=== PATIENT | female | born 1975 | race Caucasian/White ===

== ENCOUNTER 2018-07-15 19:31 | Inpatient (IN) | payer OTHER ==
[~2018-07-15] VITALS: Ht 160 cm; Wt 90.7 kg
[~2018-07-15 19:31] MED LIST: ACID REDUCER 1150 MG PO; AMPDEX10 PO; ARIP10 PO; Augmentin 875-1 EACH PO; CEPH500 PO; Flagyl500 MG PO; LEVFLO500 PO; Norvasc5 MG PO; ONDA4 PO; OXYACE5T PO; Percocet 5-3251 EACH PO; SULTRIDS PO
[2018-07-15 21:20] LABS: BASOPHILS ABSOLUTE AUTO 0.03 K/mm3 (0.00-0.23); BASOPHILS PERCENT AUTO 0 % (0-2); EOSINOPHILS ABSOLUTE AUTO 0.02 K/mm3 (0.00-0.68); EOSINOPHILS PERCENT AUTO 0 % (0-6); Hematocrit 41.8 % (33.0-51.0); Hemoglobin 13.6 g/dL (11.5-16.0); IMMATURE GRAN PERCENT AUTO 1 % (0-1); LYMPHOCYTES ABSOLUTE AUTO 1.23 K/mm3 (0.84-5.20); LYMPHOCYTES PERCENT AUTO 7 % (21-46); MONOCYTES ABSOLUTE AUTO 0.94 K/mm3 (0.16-1.47); MONOCYTES PERCENT AUTO 5 % (4-13); Mean Corpuscular HGB 30.4 pg (26.0-34.0); Mean Corpuscular HGB Conc 32.5 g/dL (31.5-36.5); Mean Corpuscular Volume 94 fL (80-100); Mean Platelet Volume 9.6 fL (9.1-12.4); NEUTROPHILS ABSOLUTE AUTO 15.47 K/mm3 (1.96-9.15); NEUTROPHILS PERCENT AUTO 87 % (41-73); Platelet Count 446 K/mm3 (150-400); RDW Standard Deviation 44.6 fL (35.1-46.3); Red Blood Cell Count 4.47 M/mm3 (3.80-5.20); White Blood Cell Count 17.79 K/mm3 (4.00-11.30)
[2018-07-15 21:33] LABS: Alanine Aminotransfer (ALT/SGP 39 U/L (12-78); Albumin, Blood 3.5 g/dL (3.4-5.0); Albumin/Globulin Ratio 0.7 (0.8-1.8); Alk Phos 126 U/L (50-136); Anion Gap 11 mmol/L (6-16); Aspartate Aminotrans (AST/SGOT 24 U/L (12-37); Bilirubin, Total 0.6 mg/dL (0.1-1.0); Blood Urea Nitrogen 14 mg/dL (8-24); Bun/Creatinine Ratio 21.8 (12.0-20.0); CO2, Blood 22 mmol/L (21-32); Calcium, Blood 9.4 mg/dL (8.5-10.1); Chloride, Blood 100 mmol/L (98-108); Creatinine, Blood 0.64 mg/dL (0.40-1.00); Globulin, Blood 5.3 g/dL (2.2-4.0); Glomerular Filtration Rate >60 (60-); Glucose, Blood 95 mg/dL (70-99); Potassium, Blood 4.4 mmol/L (3.5-5.5); Sodium, Blood 133 mmol/L (136-145); Total Protein, Blood 8.8 g/dL (6.4-8.2)
[2018-07-16] MEDS ORDERED: AMPDEX10CR PO (01:13)
[2018-07-16] MEDS ORDERED: ALPR.5 PO (01:13)
--- NOTE | 2018-07-16 07:33 | NUR ---
SHIFT SUMMARY PT NEW ADMIT THIS AM. AAOX4. DISCOMFORT CONTROLLED WITH 1MG IV DILAUDID Q2-3P. DRAIN TO RLQ ABD WITH SMALL AMOUNT SEROUS DRAINAGE. PT SBA TO AMBULATE IN ROOM. NPO. PT ORIENTED TO ROOM + CALL LIGHT USE.
--- NOTE | 2018-07-16 18:04 | NUR ---
PT C/O CONSTANT PAIN MEDICATE DPER EMAR. KPAD IN PLACE TO EASE PAIN. ABCESS DRAIN IRRIGATED BY DR MAE. DRAIN EMPTIED @125ML OF SEROUS AND THICK YELLOW MUCOUS TYPE FLUID WITH FOUL SMELL. SCD'S ON. PT ENCOURAGED TO AMBULATE MORE OFTEN TO HELP WITH PAIN WELL...NEEDS MORE ENCOURAGEMENT DUE TO PAIN.
--- NOTE | 2018-07-16 19:01 | NUR ---
DRESSING CHANGED DUE TO LEAKING AROUND INSERTION SITE
--- NOTE | 2018-07-17 04:30 | NUR ---
SHIFT SUMMARY PT RESTED WELL T/O NIGHT. AAOX4. DISCOMFORT CONTROLLED WITH 2 NORCO Q4H, NAUSEA CONTROLLED WITH ZOFRAN. NO NAUSEA. DRAIN FLUSHED PER ORDERS + BAG CHANGED. PT UP AMBULATING IN HALLS T/O SHIFT. IVF + ABX PER ORDERS. PT RESTING WELL THIS AM. CALL LIGHT IN REACH + PT USES FOR ASSISTANCE.
--- NOTE | 2018-07-17 15:45 | NUR ---
SHIFT SUMMARY PT A&OX4, VSS, S/P PELVIC ABSCESS W/ T TUBE, SURGEON IRRIGATED W/0 DRAINAGE RESULT; EMPTIED 60 MLS. ABD SOFT, NONDISTENDED, SL TENDER. AMBULATED IN ROOM, TO BRP, IN HALLWAYS, SAT IN CHAIR T/O SHIFT. 18G RAC. PAIN MANAGED WITH 1-2 NORCO, TORADOL PRN. ZOFRAN GIVEN FOR NAUSEA. ANGEL CL DIET. WCTM & TX PER EMAR UNTIL REPORT GIVEN TO ONCOMING DAVIAN RN.
--- NOTE | 2018-07-18 07:21 | NUR ---
SHIFT SUMMARY PT A&O X4 T/O SHIFT. DRAIN IN LLQ DRAINING BLOOD TINGED, GUZMAN DRAINAGE; FLUSHED PER ORDERS. TOTAL OUT MINUS FLUSH 5ML; PATENT. PAIN AND NAUSEA MANAGED PER EMAR. ABD SOFT, TENDER. EDUCATION ON DVT PREVETNION, PT REQUESTED SCD'S REMOVED FOR SECOND HALF OF SHIFT. INDEPENDENT IN ROOM AND PERSONAL CARE. TOLERATING DIET WELL. CT THIS AM. CALL LIGHT IN REACH; PT DEMONSTRATES USE. REPORT GIVEN TO DAY SHIFT RN.
--- NOTE | 2018-07-18 14:49 | NUR ---
DISCHARGED REVIEWED DC PAPERWORK W/PT. VERBALIZED UNDERSTANDING. DC'D IV, CATHETER INTACT. PRESCRIPTIONS FAXED TO [facility] PER PT REQUEST. PT LEFT UNIT BY AMBULATION W/POSSESSIONS IN HAND, ACCOMPANIED BY FAMILY.
== END 2018-07-18 14:40 | disposition home or self-care (01) | DRG 392 ==
LOC: ER 19:31 → SURS 23:37
PROVIDERS: Physician Assistant; ADMIT Surgery
DX: K57.20 Diverticulitis of large intestine with perforation and abscess without bleeding (principal); F17.290 Nicotine dependence, other tobacco product, uncomplicated
CPT/HCPCS: 36415; 74177; 80053; 83605; 85025; 87040; 94762; 96365-59; 96375; 99285-25; A9270-GY; J1170; J1885; J2405; J2543; J3010; J7030; J7120; Q9967

== ENCOUNTER 2018-07-22 13:17 | Inpatient (IN) | payer OTHER ==
[~2018-07-22] VITALS: Ht 160 cm; Wt 96.1 kg
[~2018-07-22 13:17] MED LIST changes: +ALPR.5 PO; +AMPDEX10CR PO
[2018-07-22 13:49] LABS: BASOPHILS ABSOLUTE AUTO 0.05 K/mm3 (0.00-0.23); BASOPHILS PERCENT AUTO 1 % (0-2); EOSINOPHILS ABSOLUTE AUTO 0.12 K/mm3 (0.00-0.68); EOSINOPHILS PERCENT AUTO 1 % (0-6); Hematocrit 35.8 % (33.0-51.0); Hemoglobin 11.4 g/dL (11.5-16.0); IMMATURE GRAN ABSOLUTE AUTO 0.07 K/mm3 (0.00-0.10); IMMATURE GRAN PERCENT AUTO 1 % (0-1); LYMPHOCYTES PERCENT AUTO 10 % (21-46); MONOCYTES ABSOLUTE AUTO 1.03 K/mm3 (0.16-1.47); MONOCYTES PERCENT AUTO 10 % (4-13); Mean Corpuscular HGB 30.4 pg (26.0-34.0); Mean Corpuscular HGB Conc 31.8 g/dL (31.5-36.5); Mean Corpuscular Volume 96 fL (80-100); Mean Platelet Volume 9.4 fL (9.1-12.4); NEUTROPHILS ABSOLUTE AUTO 8.47 K/mm3 (1.96-9.15); NEUTROPHILS PERCENT AUTO 78 % (41-73); Platelet Count 426 K/mm3 (150-400); RDW Coefficient Variation 12.7 % (11.7-14.2); RDW Standard Deviation 44.1 fL (35.1-46.3); Red Blood Cell Count 3.75 M/mm3 (3.80-5.20); White Blood Cell Count 10.84 K/mm3 (4.00-11.30)
[2018-07-22 14:29] LABS: Alanine Aminotransfer (ALT/SGP 42 U/L (12-78); Albumin/Globulin Ratio 0.5 (0.8-1.8); Alk Phos 113 U/L (50-136); Anion Gap 7 mmol/L (6-16); Aspartate Aminotrans (AST/SGOT 25 U/L (12-37); Bilirubin, Total 0.2 mg/dL (0.1-1.0); Blood Urea Nitrogen 12 mg/dL (8-24); Bun/Creatinine Ratio 17.9 (12.0-20.0); CO2, Blood 28 mmol/L (21-32); Calcium, Blood 9.5 mg/dL (8.5-10.1); Chloride, Blood 101 mmol/L (98-108); Creatinine, Blood 0.67 mg/dL (0.40-1.00); Globulin, Blood 5.6 g/dL (2.2-4.0); Glomerular Filtration Rate >60 (60-); Glucose, Blood 107 mg/dL (70-99); Potassium, Blood 3.8 mmol/L (3.5-5.5); Sodium, Blood 136 mmol/L (136-145); Total Protein, Blood 8.6 g/dL (6.4-8.2)
[2018-07-22] MEDS ORDERED: AMPDEX10 PO (18:01)
[2018-07-22] MEDS ORDERED: ALPR1 PO (18:01)
[2018-07-22] MEDS ORDERED: AMPDEX10 (18:01)
[2018-07-23 05:07] LABS: BASOPHILS ABSOLUTE AUTO 0.04 K/mm3 (0.00-0.23); BASOPHILS PERCENT AUTO 0 % (0-2); EOSINOPHILS ABSOLUTE AUTO 0.06 K/mm3 (0.00-0.68); EOSINOPHILS PERCENT AUTO 1 % (0-6); Hematocrit 33.6 % (33.0-51.0); Hemoglobin 10.8 g/dL (11.5-16.0); IMMATURE GRAN ABSOLUTE AUTO 0.08 K/mm3 (0.00-0.10); IMMATURE GRAN PERCENT AUTO 1 % (0-1); LYMPHOCYTES ABSOLUTE AUTO 0.88 K/mm3 (0.84-5.20); LYMPHOCYTES PERCENT AUTO 8 % (21-46); MONOCYTES PERCENT AUTO 8 % (4-13); Mean Corpuscular HGB Conc 32.1 g/dL (31.5-36.5); Mean Corpuscular Volume 93 fL (80-100); Mean Platelet Volume 9.2 fL (9.1-12.4); NEUTROPHILS ABSOLUTE AUTO 9.58 K/mm3 (1.96-9.15); NEUTROPHILS PERCENT AUTO 83 % (41-73); Platelet Count 432 K/mm3 (150-400); RDW Coefficient Variation 12.5 % (11.7-14.2); RDW Standard Deviation 43.3 fL (35.1-46.3); White Blood Cell Count 11.54 K/mm3 (4.00-11.30)
[2018-07-23 05:22] LABS: International Normalized Ratio 1.04
[2018-07-24 04:52] LABS: BASOPHILS ABSOLUTE AUTO 0.02 K/mm3 (0.00-0.23); BASOPHILS PERCENT AUTO 0 % (0-2); EOSINOPHILS ABSOLUTE AUTO 0.13 K/mm3 (0.00-0.68); EOSINOPHILS PERCENT AUTO 2 % (0-6); Hematocrit 30.7 % (33.0-51.0); Hemoglobin 9.6 g/dL (11.5-16.0); IMMATURE GRAN ABSOLUTE AUTO 0.07 K/mm3 (0.00-0.10); IMMATURE GRAN PERCENT AUTO 1 % (0-1); LYMPHOCYTES ABSOLUTE AUTO 1.35 K/mm3 (0.84-5.20); LYMPHOCYTES PERCENT AUTO 17 % (21-46); MONOCYTES ABSOLUTE AUTO 0.81 K/mm3 (0.16-1.47); MONOCYTES PERCENT AUTO 10 % (4-13); Mean Corpuscular HGB 29.3 pg (26.0-34.0); Mean Corpuscular HGB Conc 31.3 g/dL (31.5-36.5); Mean Corpuscular Volume 94 fL (80-100); Mean Platelet Volume 9.3 fL (9.1-12.4); NEUTROPHILS ABSOLUTE AUTO 5.38 K/mm3 (1.96-9.15); NEUTROPHILS PERCENT AUTO 69 % (41-73); Platelet Count 399 K/mm3 (150-400); RDW Coefficient Variation 12.7 % (11.7-14.2); Red Blood Cell Count 3.28 M/mm3 (3.80-5.20); White Blood Cell Count 7.76 K/mm3 (4.00-11.30)
[2018-07-25 04:26] LABS: BASOPHILS ABSOLUTE AUTO 0.02 K/mm3 (0.00-0.23); BASOPHILS PERCENT AUTO 0 % (0-2); EOSINOPHILS ABSOLUTE AUTO 0.25 K/mm3 (0.00-0.68); EOSINOPHILS PERCENT AUTO 3 % (0-6); Hematocrit 30.7 % (33.0-51.0); Hemoglobin 9.7 g/dL (11.5-16.0); IMMATURE GRAN ABSOLUTE AUTO 0.09 K/mm3 (0.00-0.10); IMMATURE GRAN PERCENT AUTO 1 % (0-1); LYMPHOCYTES ABSOLUTE AUTO 1.46 K/mm3 (0.84-5.20); LYMPHOCYTES PERCENT AUTO 19 % (21-46); MONOCYTES ABSOLUTE AUTO 0.63 K/mm3 (0.16-1.47); MONOCYTES PERCENT AUTO 8 % (4-13); Mean Corpuscular HGB 29.5 pg (26.0-34.0); Mean Corpuscular HGB Conc 31.6 g/dL (31.5-36.5); Mean Corpuscular Volume 93 fL (80-100); Mean Platelet Volume 8.9 fL (9.1-12.4); NEUTROPHILS PERCENT AUTO 68 % (41-73); Platelet Count 378 K/mm3 (150-400); RDW Coefficient Variation 12.7 % (11.7-14.2); RDW Standard Deviation 43.7 fL (35.1-46.3); Red Blood Cell Count 3.29 M/mm3 (3.80-5.20); White Blood Cell Count 7.55 K/mm3 (4.00-11.30)
[2018-07-27 04:39] LABS: BASOPHILS ABSOLUTE AUTO 0.04 K/mm3 (0.00-0.23); BASOPHILS PERCENT AUTO 1 % (0-2); EOSINOPHILS ABSOLUTE AUTO 0.32 K/mm3 (0.00-0.68); EOSINOPHILS PERCENT AUTO 4 % (0-6); Hemoglobin 10.7 g/dL (11.5-16.0); IMMATURE GRAN ABSOLUTE AUTO 0.15 K/mm3 (0.00-0.10); IMMATURE GRAN PERCENT AUTO 2 % (0-1); LYMPHOCYTES ABSOLUTE AUTO 1.34 K/mm3 (0.84-5.20); LYMPHOCYTES PERCENT AUTO 16 % (21-46); MONOCYTES ABSOLUTE AUTO 0.61 K/mm3 (0.16-1.47); MONOCYTES PERCENT AUTO 7 % (4-13); Mean Corpuscular HGB 29.3 pg (26.0-34.0); Mean Corpuscular HGB Conc 31.5 g/dL (31.5-36.5); Mean Corpuscular Volume 93 fL (80-100); Mean Platelet Volume 8.9 fL (9.1-12.4); NEUTROPHILS ABSOLUTE AUTO 5.79 K/mm3 (1.96-9.15); NEUTROPHILS PERCENT AUTO 70 % (41-73); Platelet Count 381 K/mm3 (150-400); RDW Coefficient Variation 12.8 % (11.7-14.2); RDW Standard Deviation 43.8 fL (35.1-46.3); Red Blood Cell Count 3.65 M/mm3 (3.80-5.20); White Blood Cell Count 8.25 K/mm3 (4.00-11.30)
[2018-07-27] MEDS ORDERED: Augmentin 875-1 EACH PO (10:47)
[2018-07-27] MEDS ORDERED: TYLENOL325 MG PO (10:47)
[2018-07-27] MEDS ORDERED: Percocet 5-3251 EACH PO (10:48)
[2018-07-27] MEDS ORDERED: GAVILAX17 GM PO (10:48)
== END 2018-07-27 11:35 | disposition home or self-care (01) | DRG 392 ==
LOC: ER 13:17 → SURS 13:18
PROVIDERS: Physician Assistant; ADMIT Surgery
PROC: 0D9W30Z Drainage of Peritoneum with Drainage Device, Percutaneous Approach (ICD-10-PCS; principal; 2018-07-23)
DX: K57.20 Diverticulitis of large intestine with perforation and abscess without bleeding (principal); N28.89 Other specified disorders of kidney and ureter; I10 Essential (primary) hypertension; F17.290 Nicotine dependence, other tobacco product, uncomplicated
CPT/HCPCS: 36415; 49405; 74177; 76705; 80053; 85025; 85610; 85730; 87070; 87075; 87077; 87186; 87205; 96361-59; 96365-59; 96375-59; 96376-59; 99285-25; J0295; J1170; J1650; J1885; J2270; J2405; J2543; J7120; Q9967

== ENCOUNTER 2018-08-06 12:26 | Inpatient (IN) | payer OTHER ==
[~2018-08-06] VITALS: Wt 94.5 kg
[~2018-08-06 12:26] MED LIST changes: +ALPR1 PO; +AMPDEX10; +GAVILAX17 GM PO; +TYLENOL325 MG PO
--- NOTE | 2018-08-06 15:51 | NUR ---
pt arrived to room 226 direct admit from home for surg planned in am for coloctomy with colostomy dr jansen ans service notified of pt arrival
--- NOTE | 2018-08-06 16:57 | NUR ---
DR MAE BY TO SEE PT IV STARTED OK TO EAT REG DIET NPO AFTER MN SURG SCHED FOR 0900 PT GIVEN BOOK FOR COLOSTOMY TALKED WITH PT ABOUT PREOP AND SURG PAIN MEDS GIVEN
--- NOTE | 2018-08-06 18:54 | NUR ---
pt wanting to go outside with her family sl iv
--- NOTE | 2018-08-06 19:26 | NUR ---
PT REP HAVING DIARRHEA OVER LAST SEVERAL DAYS. PT W/RECENT ADMITS W/IN PT AND OUT PT ABX. CONCERN R/T POSS C-DIFF DISCUSSED W/DR MAE. NO ORDER FOR STOOL SAMPLE RECIEVED AT THIS TIME.
--- NOTE | 2018-08-06 19:28 | NUR ---
pt back to room po pain meds given
[2018-08-07 04:28] LABS: BASOPHILS ABSOLUTE AUTO 0.03 K/mm3 (0.00-0.23); BASOPHILS PERCENT AUTO 0 % (0-2); EOSINOPHILS ABSOLUTE AUTO 0.14 K/mm3 (0.00-0.68); EOSINOPHILS PERCENT AUTO 1 % (0-6); Hematocrit 28.6 % (33.0-51.0); IMMATURE GRAN PERCENT AUTO 1 % (0-1); LYMPHOCYTES ABSOLUTE AUTO 1.47 K/mm3 (0.84-5.20); LYMPHOCYTES PERCENT AUTO 14 % (21-46); MONOCYTES ABSOLUTE AUTO 1.07 K/mm3 (0.16-1.47); MONOCYTES PERCENT AUTO 10 % (4-13); Mean Corpuscular HGB 29.2 pg (26.0-34.0); Mean Corpuscular HGB Conc 31.5 g/dL (31.5-36.5); Mean Corpuscular Volume 93 fL (80-100); Mean Platelet Volume 9.3 fL (9.1-12.4); NEUTROPHILS ABSOLUTE AUTO 7.64 K/mm3 (1.96-9.15); NEUTROPHILS PERCENT AUTO 73 % (41-73); Platelet Count 378 K/mm3 (150-400); RDW Coefficient Variation 13.7 % (11.7-14.2); RDW Standard Deviation 46.5 fL (35.1-46.3); Red Blood Cell Count 3.08 M/mm3 (3.80-5.20); White Blood Cell Count 10.45 K/mm3 (4.00-11.30)
[2018-08-07 04:43] LABS: Anion Gap 8 mmol/L (6-16); Blood Urea Nitrogen 13 mg/dL (8-24); CO2, Blood 26 mmol/L (21-32); Calcium, Blood 8.9 mg/dL (8.5-10.1); Chloride, Blood 107 mmol/L (98-108); Creatinine, Blood 0.82 mg/dL (0.40-1.00); Glomerular Filtration Rate >60 (60-); Glucose, Blood 88 mg/dL (70-99); Potassium, Blood 3.7 mmol/L (3.5-5.5); Sodium, Blood 141 mmol/L (136-145)
--- NOTE | 2018-08-07 06:38 | NUR ---
PT VSS T/O NIGHT. PT REMAINS PAINFUL, REP NAUSEA THIS AM, NO EMESIS OR DIARRHEA THIS SHIFT. PT NPO PER ORDERS. PLAN FOR SURGERY THIS AM. WILL CONT TO MONITOR UNTIL REP GIVEN TO ONCOMING RN.
--- NOTE | 2018-08-07 10:47 | NUR ---
08/07/18 1047 Mustapha Grimm PATIENT ON SCHEDULED ANTIBIOTICS
--- NOTE | 2018-08-07 18:50 | NUR ---
SHIFT SUMMARY PT A&OX4, VSS, 2L NC, S/P COLECTOMY W/PREVENA, COLOSTOMY. EPIDURAL @ 11 MLS/HR, PT REP PAIN NOT MANAGED WELL, SENSATION T11 - L1, REPOSITIONING; CALLED AND LEFT MESSAGE FOR DAYSURG/PACU TO ALERT ANESTHESIOLOGIST TO COME AND CHECK EPIDURAL ON PT. LOBO PATENT & DRAINING YELLOW URINE. PT REP NAUSEA, ZOFRAN GIVEN X1. WCTM & TX PER EMAR UNTIL REPORT GIVEN TO ONCOMING NOC RN.
--- NOTE | 2018-08-07 19:42 | NUR ---
PT WRITHING, CRYING OUT IN PAIN, UNABLE TO RATE PAIN. EPIDURAL SITE WNL, PT REP PAIN W/LIGHT TOUCH TO AREA AROUND EPIDRUAL, MORE SO RIGHT OF SITE. PT REP PAIN FEELS CONSTANT, THROBBING, RADIATING, REP "IT FEELS LIKE NERVE PAIN" PT REP PAIN IN ABD 9/10, ATTEMPTED TO REPOSITION PT, ABD MORE PAINFUL WHEN OFF OF BACK, BACK MORE PAINFUL WHEN LYING ON BACK. EPIDURAL TITRATED UP TO 12ML/HR BY DAY RN. DAY RN PLACED TO ANESTHESIA FOR UPDATE ON PT, AWAITING CALL BACK.
--- NOTE | 2018-08-07 19:50 | NUR ---
SPOKE W/DR JEFFERY R/T PT PAIN CONTROL. PLAN FOR TO COME SEE PT AFTER CURRENT CASE.
--- NOTE | 2018-08-07 20:32 | NUR ---
DR JEFFERY IN TO SEE PT. EPIDURAL REMOVED APPX 1999. BACK VERY RED BENEATH DRESSING AND TAPE. PT MEDICATED W/100MCG FENTANYL IV PUSH PER ORDERS. PT MUCH MORE CALM APPX 10 MIN AFTER EPIDURAL D/C. REDNESS RESOLVED WELL. PT CONT REP ABD PAIN 10/10, REP WAS PREV 100/10. ORAL SWABS GIVEN. AWAITING NEW PAIN MED ORDERS.
--- NOTE | 2018-08-07 22:16 | NUR ---
FENTANYL FURNITURE REFINISHER RUNNING PER ORDERS. PT LYING CALMLY IN BED, APPEARING MUCH MORE RELAXED, RESP E/U. PT AWAKENS TO VERBAL STIMULI, REP PAIN "DOING BETTER" BP NOTED ELEVATED FROM PRIOR READINGS, WILL CLOSELY MONITOR.
--- NOTE | 2018-08-08 01:29 | NUR ---
PT CONT TO STRUGGLE W/PAIN CONTROL. PT RATING PAIN 7/10 AFTER EPIC ANESTHESIA ANALYST DEMAND BUTTON PRESSED. PT BP NOTED TO BE TRENDING UP. CALL PLACED TO DR MAE, PT STATUS UPDATED, VITALS AND CURENT PAIN MED ORDERS REVIEWED. NEW ORDERS REC.
--- NOTE | 2018-08-08 06:49 | NUR ---
POD 1 S/P COLECTOMY W/NEW OSTOMY. PT VSS, BP TRENDING UP, PT DENIED CP/PRESSURE, 2LO2 NC IN PLACE. PT CONT TO STRUGGLE W/PAIN CONTROL T/O NIGHT, REP PAIN 610 THIS AM. PT DOES REP MILD NAUSEA, NO EMESIS. PREVENA INTACT, NO LEAKS NOTED, NO OUTPUT FROM OSTOMY. PT REP BACK PAIN IMPROVED AFTER EPIDURAL REMOVED, DENIED N/T TO BLE. IVF CONT PER ORDERS, LOBO DRNG YELLOW URINE. PT USING CALL LIGHT FOR ASSISTANCE, WILL CONT TO MONITOR UNTIL REP GIVEN TO ONCOMING RN.
--- NOTE | 2018-08-08 15:20 | NUR ---
Per admit trigger, I met with Elinor to offer prayer adn spiritual support. She was too uncomfortable for long visit. She accepted prayer for healing. I will remain available.
--- NOTE | 2018-08-08 17:57 | NUR ---
SHIFT SUMMARY POD1 SIGMOID COLECTOMY WITH NEW COLOSTOMY. OSTOMY PINK AND BEEFY WITH NO OUTPUT OR GAS DURING SHIFT. SUPERVISOR TREATING AND PUMPING CHANGED TO DILADUID TO POSITIVE EFFECT ON PAIN CONTROL. PT SMILING AND TALKATIVE DURING SHIFT, STILL C/0 OF 7/10 PAIN. APPEARS TO BE TOLERATING WELL. LOBO CATH IN PLACE DRAINING YELLOW URINE.
[2018-08-09 04:40] LABS: BASOPHILS ABSOLUTE AUTO 0.03 K/mm3 (0.00-0.23); BASOPHILS PERCENT AUTO 0 % (0-2); EOSINOPHILS ABSOLUTE AUTO 0.08 K/mm3 (0.00-0.68); EOSINOPHILS PERCENT AUTO 1 % (0-6); Hematocrit 23.9 % (33.0-51.0); Hemoglobin 7.6 g/dL (11.5-16.0); IMMATURE GRAN ABSOLUTE AUTO 0.22 K/mm3 (0.00-0.10); IMMATURE GRAN PERCENT AUTO 1 % (0-1); LYMPHOCYTES ABSOLUTE AUTO 1.32 K/mm3 (0.84-5.20); LYMPHOCYTES PERCENT AUTO 8 % (21-46); MONOCYTES ABSOLUTE AUTO 1.29 K/mm3 (0.16-1.47); MONOCYTES PERCENT AUTO 7 % (4-13); Mean Corpuscular HGB 29.6 pg (26.0-34.0); Mean Corpuscular HGB Conc 31.8 g/dL (31.5-36.5); Mean Corpuscular Volume 93 fL (80-100); Mean Platelet Volume 8.8 fL (9.1-12.4); NEUTROPHILS ABSOLUTE AUTO 14.67 K/mm3 (1.96-9.15); NEUTROPHILS PERCENT AUTO 83 % (41-73); Platelet Count 316 K/mm3 (150-400); RDW Coefficient Variation 13.9 % (11.7-14.2); RDW Standard Deviation 47.4 fL (35.1-46.3); Red Blood Cell Count 2.57 M/mm3 (3.80-5.20); White Blood Cell Count 17.61 K/mm3 (4.00-11.30)
[2018-08-09 04:55] LABS: Anion Gap 5 mmol/L (6-16); Blood Urea Nitrogen 6 mg/dL (8-24); Bun/Creatinine Ratio 8.9 (12.0-20.0); CO2, Blood 27 mmol/L (21-32); Chloride, Blood 103 mmol/L (98-108); Creatinine, Blood 0.67 mg/dL (0.40-1.00); Glomerular Filtration Rate >60 (60-); Glucose, Blood 109 mg/dL (70-99); Potassium, Blood 3.6 mmol/L (3.5-5.5); Sodium, Blood 135 mmol/L (136-145)
--- NOTE | 2018-08-09 05:08 | NUR ---
SHIFT SUMMARY: PT POD #2 FOR SIGMOID COLECTOMY. MINIMAL OUTPUT TO COLOSTOMY BAG. STOMA PINK AND BEEFY RED. PROVENA WOUND VAC COMPRESSED W/O LEAKS. PAIN MANAGED WITH DILAUDID BINDERY MACHINE SETTER PUMP AND TORADOL PER EMAR. GIVEN ZOFRAN ONCE FOR COMPLAINTS OF NAUSEA. NO EMESIS. ANGEL CLR LIQ DIET. PT OOB TO WHEELCHAIR ONCE. WILL TAKE LOBO CATHETER OUT THIS AM.
--- NOTE | 2018-08-09 17:53 | NUR ---
SHIFT SUMMARY POD2 SIGMOID COLECTOMY. OSTOMY IN PLACE SMALL AMOUNT OF SEROSANGUINEOUS FLUID IN BAG. NO GAS OR BM PASSING, BOWEL SOUNDS PRESENT. LOBO OUT AT 0500 PT HAS URINATED TWICE APPROX 100ML EACH. DILAUDID MOBILE SECURITY SPECIALIST IN PLACE, PT MEDICATED WITH TORODOL X1 FOR BREAKTHROUGH PAIN. ZOFRAN X2 DURING SHIFT. PT PAIN AT 7/10 DURING SHIFT.
--- NOTE | 2018-08-10 05:12 | NUR ---
SUMMARY: POD [address] MAE. VSS, AFEBRILE, ROOM AIR. PAIN WELL CONTROLLED WITH DILAUDID DIGITAL MEDIA SALES CONSULTANT AND TORDAL. PT TOLERATING FULL LIQ DIET AND DENIES NAUSEA. SMALL AMOUNT OF BROWN SEROUS OUTPUT IN COLOSTOMY BAG, NO FLATUS. UP WITH SBA TO BSC AND VOIDING, PASSING SMALL AMOUNTS OF DARK RED BLOOD RECTALLY. CONTINUE TO ENCOURAGE OOB ACTIVITY AND UP TO CHAIR.
--- NOTE | 2018-08-10 09:38 | NUR ---
TOLERATING FULL LIQUIDS WELL WITH BREAKFAST . AMBULATED TO BATHROOM WITH MINIMAL ASSISTANCE. C/O NAUSEA, ZOFRAN GIVEN.
--- NOTE | 2018-08-10 11:02 | NUR ---
OSTOMY OSTOMY APPLIANCE CHANGED AT THIS TIME DUE TO LEAKING. THIS RN DEMONSTRATED OSTOMY APPLIANCE CHANGE AND ANSWERED ALL PT QUESTIONS DURING PROCEDURE. THIS RN ALSO GAVE THE PT A SEPARATE OSTOMY APPLIANCE TO TOUCH AND FEEL AND LEARN. WILL CONT TO MONITOR.
--- NOTE | 2018-08-10 11:04 | NUR ---
PROVENA PROVENA DRESSING CHANGED AT THIS TIME. WOUND CARE COMPLETE.
--- NOTE | 2018-08-10 11:23 | NUR ---
PTLEAKING STOOL AROUND OSTOMY BAG. CLEANED WOUND AND CHANGED PREVENA AND OSTOMY BAG. PUT OUT ABOUT 300 ML OF LIQUID BROWN STOOL
--- NOTE | 2018-08-10 13:15 | NUR ---
PT TOLERATING FULL LIQUIDS. LR AND STONE POLISHER DILAUDID DC'D AND SALINE LOCKED. NO C/O NAUSEA AT THIS TIME. AMBULATING WELL TO BATHROOM WITH MINIMAL PAIN. UP IN CHAIR
--- NOTE | 2018-08-10 17:44 | NUR ---
OSTOMY SUPPLIES FAXED OVER OSTOMY SUPPLY FORM.
--- NOTE | 2018-08-10 18:39 | NUR ---
SHIFT SUMMARY OSTOMY APPLIANCE AND INCISION DRESSING CHANGED MULTIPLE TIMES TODAY DUE TO LEAKING STOOL. DILAUDID OCCUPATIONAL THERAPY SPECIALIST DCD AND ORAL PAIN MEDS ORDERED. IV DILAUDID GIVEN X1 FOR BREAKTHROUGH PAIN. PT ADVANCED TO REGULAR DIET FOR DINNER TOLERATED WELL. PT IND IN ROOM VSS PT REPORTS OCCASIONAL NAUSEA, ZOFRAN EFFECTIVE. PT USES CALL LIGHT APPROP. WILL CONTINUE TO MONITOR UNTIL REPORT TO NOC RN
--- NOTE | 2018-08-11 05:26 | NUR ---
POD 4 S/P SIG COLECTOMY. STILL HAVING PAIN CONTROL ISSUES BUT ITS MANAGEABLE WITH ALTERNATING PO/IV NARCOTICS. DENIES ANY N/V AND TOLERATING PO. MIDLINE DRESSING NOW WITH A AQUACEL AND IS CDI. OSTOMY IS PRODUCING STOOL AND FLATUS AND WAS CHANGED AT BEGINNING OF SHIFT. PT IS AMBULATING INDEPENDENTLY IN ROOM AND VOIDING WELL. CALL LIGHT IN REACH AND WILL REPORT OFF TO NEXT SHIFT.
--- NOTE | 2018-08-11 06:55 | NUR ---
REPORT FROM JODI KEITH. ASSUMED PT CARE.
--- NOTE | 2018-08-11 07:44 | NUR ---
PT C/O ABD PAIN AND NAUSEA. BREAKFAST PROVIDED. WILL PROVIDE MEDS PER EMAR.
--- NOTE | 2018-08-11 07:55 | NUR ---
PT MEDICATED WITH ZOFRAN AND NORCO PER EMAR. ANGEL CLEARS. REG DIET ORDERED.
--- NOTE | 2018-08-11 08:09 | NUR ---
PT AMBULATING IN HALLS AND TALKING ON PHONE.
--- NOTE | 2018-08-11 08:40 | NUR ---
PT MORE COMFORTABLE. PAIN IMPROVED.
--- NOTE | 2018-08-11 09:38 | NUR ---
PT MEDICATED WITH 2 OXY PER EMAR.
--- NOTE | 2018-08-11 10:11 | NUR ---
CARE ASSUMED OF PT AT APPROXIMATELY 0915. PT ASSESSED AND THIS RN AGREES WITH ASSESSMENT DOCUMENTATION BY MALACHI GARZA RN. WILL CONTINUE TO MONITOR.
--- NOTE | 2018-08-11 16:45 | NUR ---
SHIFT SUMMARY PAIN HAS BEEN MANAGED WITH PO AND IV PAIN MEDICATION THIS SHIFT. OSTOMY HAS REMAINED IN PLACE WITHOUT LEAKING. PT IS PASSING BROWN STOOL AND FLATUS FROM THE OSTOMY. PT IS INDEPENDENT IN THE ROOM. FAMILY HAS VISITED T/O THE DAY. VSS. WILL MONITOR UNTIL REPORT TO ONCOMING RN.
--- NOTE | 2018-08-12 06:43 | NUR ---
POD 6 S/P COLECTOMY. PT VSS T/O NIGHT. DRESSING CDI. PT STRUGGLED W/PAIN CONTROL T/O NIGHT, NEEDING BOTH IV AND PO PAIN MEDS. OSTOMY PUTTING OUT SM AMT LIQ STOOL, STOMA WNL. PT DID C/O OCC NAUSEA, NO EMESIS. PT UP INDEP IN ROOM, AMB ENC PT ANGEL. PT ANXIOUS AND EMOTIONAL AT TIMES, SUPPORT PRN. PT USING CALL LIGHT FOR ASSISTANCE, WILL CONT TO MONITOR UNTIL REP GIVEN TO ONCOMING RN.
--- NOTE | 2018-08-12 14:32 | NUR ---
Met pt lying in bed resting, pt. reports to be doing much better encouraged pt. and offered spiritual support and prayersa.
--- NOTE | 2018-08-12 19:45 | NUR ---
SHIFT SUMMARY PT A&OX4, VSS, POD6 LAP COLECTOMY W/COLOSTOMY. MIDLINE AQUACEL CHANGED, SEROSANGUINOUS DC. OSTOMY CHANGED TODAY W/PT PARTICIPATION; VERY LITTLE BROWN SOFT OUTPUT; PASSING FLATUS AND PT "BURPING". PAIN MANAGED WITH 10 MG PERCOCET. PT UP TO CHAIR AND WALKING HALLS. ANGEL PO, DENIES N&V AT THIS TIME. REPORT GIVEN TO NICOLE KEITH.
--- NOTE | 2018-08-13 04:47 | NUR ---
SHIFT SUMMARY: PT POD #7 FOR SIG COLECTOMY WITH OSTOMY. NO GAS OR STOOL NOTED IN OSTOMY T/O SHIFT. AQUACEL DRESSING CDI. RESTING MOST OF SHIFT. REPORTING PAIN 8-9/10. DESCRIBING PAIN SHARP AND STABBING. GIVEN ORAL PAIN MEDS Q4 PER EMAR. GIVEN IV DILAUDID ONCE. PT ENCOURAGED TO AMBULATE. AMBULATED X2. REPORTS OCC NAUSEA. NO EMESIS. GIVEN REGLAN ONCE. VOIDING AND ANGEL REG DIET. INDEPENDENT IN ROOM.
--- NOTE | 2018-08-13 18:10 | NUR ---
SHIFT SUMMARY PT A&OX4, VSS, POD#7 COLECTOMY W/COLOSTOMY, DRESSINGS CHANGED TODAY, LARGE AMT SEROSANGUINOUS DC IN AQUACEL, MEDIUM FORMED BROWN STOOL IN COLOSTOMY. PAIN MANAGED WITH 10 MG PERC. ANGEL PO, DENIES N&V. AMB INDEPENDENT IN ROOM, TO BRP, IN HALLWAY. WCTM & TX PER EMAR UNTIL REPORT GIVEN TO ONCNICA MARCELO RN.
--- NOTE | 2018-08-13 21:51 | NUR ---
PT VERY TEARFUL AT THIS TIME, REPORTING THAT SHE IS FRUSTURATED AND FEELING HOPELESS BECAUSE THE ORAL PERCOCET IS NOT EFFECTIVE FOR HER PAIN. CONSISTANTLY RATING PAIN 8/10 WITHOUT SIGNIFICANT RELIEF. CONSULTED WITH DR PHILLIPS REGARDING PAIN MANAGEMENT ISSUE. HE IS ADVISING THAT PT RECIEVE IV DILAUDID THAT IS ALREADY ORDERED PRN. NEW ORDER FOR XANAX. WILL ADMINISTER AND CTM.
--- NOTE | 2018-08-14 05:55 | NUR ---
SHIFT SUMMARY: PT A&O X4, VS WNL. S/P SIG COLECTOMY WITH OSTOMY. NO OSTOMY OUTPUT OVERNIGHT. AQUACEL CDI. WILL REPLACE AQUACEL WITH MEDIPORE NEXT DRESSING CHANGE. SLIGHT IMPROVEMENT WITH PAIN MANAGEMENT. PT ABLE TO SLEEP T/O NIGHT. GIVEN PERCOCET Q4 AND 0.5MG OF DILAUDID TWICE. ALSO GIVEN XANAX FOR ANXIETY. PT OOB TO BRP SEVERAL TIMES. VOIDING AND ANGEL REG DIET. ACTIVE BT. DENIES N/V.
--- NOTE | 2018-08-14 11:30 | NUR ---
PT TO SHOWER THIS MORNING. AFTERWARDS, APPLIED DRESSING ON SURGICAL INCISION SITE. ALSO APPLIED OSTOMY WITH RN. PT HELPED PUT ON OSTOMY.
--- NOTE | 2018-08-14 11:42 | NUR ---
DR. VALENZUELA HERE RECENTLY TO SEE PT. DISCUSSED PT'S STATUS.
--- NOTE | 2018-08-14 17:32 | NUR ---
SHIFT SUMMARY PT HAS BEEN AMBULATING TODAY. PT REPORTS PASSING GAS AND SMALL OUTPUT IN OSTOMY. PT HAS BEEN EATING SOME AND DRINKING FLUIDS. PT REPORTS PAIN, MEDICATED PER ORDERS. SEE EMAR. PT HAD SHOWER THIS MORNING. DRESSING AND OSTOMY CHANGED AFTERWARD WITH PT ASSISTANCE. DR LOZA TO SEE PT TODAY.
--- NOTE | 2018-08-15 04:27 | NUR ---
SHIFT SUMMARY: NO ACUTE CHANGES OVER NIGHT. PT CONTINUES TO RATE PAIN 8/10. GIVEN PERCOCET 10MG Q4 AND 1MG OF DILAUDID FOR BREAKTHROUGH PAIN. MEDIPORE DRESSING TO ABD CHANGED TWICE THIS SHIFT. SMALL AMT OF SS FLUID NOTED. PT REPORTS GAS IN OSTOMY. NO STOOL. POWERGLIDE PLACED IN LEFT UPPER ARM. VOIDING AND ANGEL REG DIET. INDEPENDENT IN ROOM.
--- NOTE | 2018-08-15 18:43 | NUR ---
SUMMARY RESTING IN BED, PT REPORTED NOT GETTING ADEQUATE PAIN CONTROL, DR. MAE NOTIFIED THIS AFTERNOON, ORDERED DILAUDID PO, PT REPORTS PAIN IS SLIGHTLY BETTER, RATES PAIN AT A "LOWER 7" FROM 10/26, DRESSING ON ABD CHANGED ONCE TODAY, COPIOUS AMOUNT OF SEROSANG. DRAINAGE NOTED, PT CARING FOR OSTOMY HERSELF, DENIES ANY QUESTIONS OR PROBLEMS WITH OSTOMY CARE, NO ACUTE CHANGES THIS SHIFT.
--- NOTE | 2018-08-16 05:19 | NUR ---
POD S/P COLECTOMY. HAS DONE FAIR DURING NIGHT. PAIN STILL SEEMS TO BE AN ISSUE BUT PT DID TAKE A LARGER XANAX DOSE WHICH SEEMED TO HELP AND PT WAS ABLE TO SLEEP WELL AFTER. ABD DRESSING AND OSTOMY WERE CHANGED AGAIN DUE TO LEAKING FROM OSTOMY. ALSO NOTED SOME SS DRAINAGE FROM DISTAL PORTION OF INCISION. SARAH ARE INTACT. DOES ALSO HAVE SOME REDNESS NOTED TO THE TRANSVERESE LOWER ABD. HAS BEEN UP AMBULATING INDEPENDENTLY IN ROOM. PLAN IS TO BE DC'D HOME TODAY. CALL LIGHT IN REACH AND WILL REPORT OFF TO NEXT SHIFT.
--- NOTE | 2018-08-16 15:42 | NUR ---
Met pt. lying in bed resting but still in pain offered spiritual support and prayers for the pt.and encouraged him .
--- NOTE | 2018-08-16 17:01 | NUR ---
WOUND CARE/SUMMARY DR. MAE HERE TO SEE PT, EXAMINED STOMA AND ABD INCISION, PREVENA DRESSING PLACED ORDERED, WILL COME BACK TO POSSIBLY DC PT LATER THIS EVENING, PAIN LEVEL APPEARS TO BE TOLERABLE, AMBULATED X3, ABLE TO DO OWN ADL'S AND CARE FOR OSTOMY, NO ACUTE CHANGES THIS SHIFT.
[2018-08-16] MEDS ORDERED: HYDMOR2 PO (18:50)
[2018-08-16] MEDS ORDERED: ONDA4ODT PO (18:52)
--- NOTE | 2018-08-16 19:16 | NUR ---
DC'D HOME, DC INSTRUCTIONS GIVEN VERBALIZED UNDERSTANDING, DC'D HOME WITH OSTOMY SUPPLIES, STATES SHE IS COMFORTABLE MANAGING OSTOMY AT HOME.
== END 2018-08-16 19:30 | disposition home or self-care (01) | DRG 331 ==
LOC: SURS 12:26
PROVIDERS: ADMIT Surgery
PROC: 0DTG0ZZ Resection of Left Large Intestine, Open Approach (ICD-10-PCS; principal; 2018-08-07 09:00)
PROC: 0D1K0Z4 Bypass Ascending Colon to Cutaneous, Open Approach (ICD-10-PCS; 2018-08-07 09:00)
DX: K57.20 Diverticulitis of large intestine with perforation and abscess without bleeding (principal); I10 Essential (primary) hypertension; Z87.891 Personal history of nicotine dependence
CPT/HCPCS: 36415; 80048; 81025; 85025; 88307; C1751; C9113; J1100; J1170; J1650; J1885; J2250; J2405; J2543; J2704; J2710; J2765; J3010; J7050; J7120; V2790

== ENCOUNTER 2018-08-26 07:35 | Day surgery (SDC) | payer OTHER ==
[~2018-08-26 07:35] MED LIST changes: +HYDMOR2 PO; +ONDA4ODT PO
== END 2018-08-27 22:41 | disposition home or self-care (01) ==
LOC: WOUND 07:35
DX: T81.31XA Disruption of external operation (surgical) wound, not elsewhere classified, initial encounter (principal); Z93.3 Colostomy status
CPT/HCPCS: G0463

== ENCOUNTER 2018-09-02 00:33 | Day surgery (SDC) | payer OTHER | END 2018-09-02 22:48 | disposition home or self-care (01) | LOC: WOUND 00:33 | DX: T81.31XA Disruption of external operation (surgical) wound, not elsewhere classified, initial encounter (principal) | CPT/HCPCS: G0463 ==

== ENCOUNTER 2018-09-16 13:17 | Day surgery (SDC) | payer OTHER | END 2018-09-16 22:57 | disposition home or self-care (01) | LOC: WOUND 13:17 | DX: T81.31XA Disruption of external operation (surgical) wound, not elsewhere classified, initial encounter (principal) ==

== ENCOUNTER 2018-09-19 12:25 | Day surgery (SDC) | payer OTHER | END 2018-09-19 22:37 | disposition home or self-care (01) | LOC: WOUND 12:25 | DX: T81.31XA Disruption of external operation (surgical) wound, not elsewhere classified, initial encounter (principal); K57.30 Diverticulosis of large intestine without perforation or abscess without bleeding; F41.9 Anxiety disorder, unspecified ==

== ENCOUNTER 2018-09-21 15:07 | Day surgery (SDC) | payer OTHER | END 2018-09-21 22:44 | disposition home or self-care (01) | LOC: WOUND 15:07 | DX: T81.31XA Disruption of external operation (surgical) wound, not elsewhere classified, initial encounter (principal); K57.80 Diverticulitis of intestine, part unspecified, with perforation and abscess without bleeding; F41.9 Anxiety disorder, unspecified ==

== ENCOUNTER 2018-09-23 13:03 | Day surgery (SDC) | payer OTHER | END 2018-09-23 22:44 | disposition home or self-care (01) | LOC: WOUND 13:03 | DX: T81.31XA Disruption of external operation (surgical) wound, not elsewhere classified, initial encounter (principal); K57.30 Diverticulosis of large intestine without perforation or abscess without bleeding; F41.9 Anxiety disorder, unspecified ==

== ENCOUNTER 2018-09-26 13:58 | Day surgery (SDC) | payer OTHER | END 2018-09-26 22:38 | disposition home or self-care (01) | LOC: WOUND 13:58 | DX: T81.31XA Disruption of external operation (surgical) wound, not elsewhere classified, initial encounter (principal); K57.80 Diverticulitis of intestine, part unspecified, with perforation and abscess without bleeding; F41.9 Anxiety disorder, unspecified ==

== ENCOUNTER 2018-09-30 13:11 | Day surgery (SDC) | payer OTHER | END 2018-09-30 23:01 | disposition home or self-care (01) | LOC: WOUND 13:11 | DX: T81.31XA Disruption of external operation (surgical) wound, not elsewhere classified, initial encounter (principal); K57.80 Diverticulitis of intestine, part unspecified, with perforation and abscess without bleeding; F41.9 Anxiety disorder, unspecified | CPT/HCPCS: G0463 ==

== ENCOUNTER 2018-10-03 15:22 | Day surgery (SDC) | payer OTHER | END 2018-10-03 23:04 | disposition home or self-care (01) | LOC: WOUND 15:22 | DX: T81.31XA Disruption of external operation (surgical) wound, not elsewhere classified, initial encounter (principal); F41.9 Anxiety disorder, unspecified ==

== ENCOUNTER 2018-10-05 15:25 | Day surgery (SDC) | payer OTHER | END 2018-10-05 22:44 | disposition home or self-care (01) | LOC: WOUND 15:25 | DX: T81.31XA Disruption of external operation (surgical) wound, not elsewhere classified, initial encounter (principal); F41.9 Anxiety disorder, unspecified; Z90.3 Acquired absence of stomach [part of] ==

== ENCOUNTER 2018-10-07 13:10 | Day surgery (SDC) | payer OTHER | END 2018-10-07 22:58 | disposition home or self-care (01) | LOC: WOUND 13:10 | DX: T81.31XA Disruption of external operation (surgical) wound, not elsewhere classified, initial encounter (principal) ==

== ENCOUNTER 2018-10-10 15:33 | Day surgery (SDC) | payer OTHER | END 2018-10-10 22:37 | disposition home or self-care (01) | LOC: WOUND 15:33 | DX: T81.31XA Disruption of external operation (surgical) wound, not elsewhere classified, initial encounter (principal) ==

== ENCOUNTER 2018-10-12 15:25 | Day surgery (SDC) | payer OTHER | END 2018-10-12 22:59 | disposition home or self-care (01) | LOC: WOUND 15:25 | DX: T81.31XA Disruption of external operation (surgical) wound, not elsewhere classified, initial encounter (principal) ==

== ENCOUNTER 2018-10-17 15:27 | Day surgery (SDC) | payer OTHER | END 2018-10-17 22:40 | disposition home or self-care (01) | LOC: WOUND 15:27 | PROC: 2W03X6Z Change Pressure Dressing on Abdominal Wall (ICD-10-PCS; principal; 2018-10-17) | DX: T81.89XA Other complications of procedures, not elsewhere classified, initial encounter (principal); Z90.49 Acquired absence of other specified parts of digestive tract; Z93.3 Colostomy status ==

== ENCOUNTER 2018-10-19 15:25 | Day surgery (SDC) | payer OTHER | END 2018-10-19 23:34 | disposition home or self-care (01) | LOC: WOUND 15:25 | DX: T81.31XD Disruption of external operation (surgical) wound, not elsewhere classified, subsequent encounter (principal); F41.9 Anxiety disorder, unspecified; Z93.3 Colostomy status; Z48.01 Encounter for change or removal of surgical wound dressing | CPT/HCPCS: G0463 ==

== ENCOUNTER 2018-10-27 15:27 | Day surgery (SDC) | payer OTHER | END 2018-10-27 22:49 | disposition home or self-care (01) | LOC: WOUND 15:27 | DX: T81.31XA Disruption of external operation (surgical) wound, not elsewhere classified, initial encounter (principal); K57.80 Diverticulitis of intestine, part unspecified, with perforation and abscess without bleeding; Z48.01 Encounter for change or removal of surgical wound dressing | CPT/HCPCS: G0463 ==

== ENCOUNTER 2018-11-01 12:33 | Day surgery (SDC) | payer OTHER | END 2018-11-01 23:05 | disposition home or self-care (01) | LOC: WOUND 12:33 | DX: T81.31XA Disruption of external operation (surgical) wound, not elsewhere classified, initial encounter (principal); K57.80 Diverticulitis of intestine, part unspecified, with perforation and abscess without bleeding; F41.9 Anxiety disorder, unspecified | CPT/HCPCS: G0463 ==

== ENCOUNTER 2018-11-08 00:16 | Day surgery (SDC) | payer OTHER | END 2018-11-08 22:42 | disposition home or self-care (01) | LOC: WOUND 00:16 | DX: T81.31XA Disruption of external operation (surgical) wound, not elsewhere classified, initial encounter (principal); T81.89XD Other complications of procedures, not elsewhere classified, subsequent encounter; Z87.19 Personal history of other diseases of the digestive system; Z90.49 Acquired absence of other specified parts of digestive tract ==

== ENCOUNTER 2018-12-08 12:26 | Day surgery (SDC) | payer OTHER | END 2018-12-08 23:26 | disposition home or self-care (01) | LOC: WOUND 12:26 | DX: T81.31XA Disruption of external operation (surgical) wound, not elsewhere classified, initial encounter (principal); Z90.49 Acquired absence of other specified parts of digestive tract | CPT/HCPCS: G0463 ==

== ENCOUNTER → 2018-12-30 | Outpatient (CLI) | payer OTHER ==
[2019-01-06 04:07] LABS: COTININE None Detected (.); NICOTINE None Detected (.)
== END | disposition home or self-care (01) ==
LOC: LAB SHORT 14:20 → LAB 14:20
PROVIDERS: Surgery
DX: Z01.812 Encounter for preprocedural laboratory examination (principal)
CPT/HCPCS: G0480

== ENCOUNTER 2019-02-22 09:36 | Day surgery (SDC) | payer OTHER ==
[~2019-02-22] VITALS: Ht 160 cm; Wt 98.0 kg
[~2019-02-22 09:36] MED LIST changes: +AMPDEX5 PO; +Cymbalta20 MG PO; +IBUP400 PO; +Sudogest30 MG PO
--- NOTE | 2019-02-22 10:35 | NUR ---
Ambulatory in Day Surgery. Patient states colon prep results clear. History, Chart, Medications and Allergies reviewed before start of procedure. Lungs clear T/O to Auscultation. Patient confirms NPO status and agrees with scheduled surgery. Pre-Op teaching done. Pt verbalizes understanding. Patient States Post-Procedure ride home has been arranged.
--- NOTE | 2019-02-22 11:31 | NUR ---
02/22/19 1130 Leonardo Connor PATIENT DETERMINED TO BE ASA APPROPRIATE FOR PROPOFOL SEDATION PRIOR TO START OF PROCEDURE BY 3-LEAD EKG REVIEWED WITH PHYSICIAN PRIOR TO START OF PROCEDURE.Patient to ENDO 1History, Chart, Medications and Allergies reviewed before start of procedure.MONITOR INTACT WITH CONTINUOUS PULSE OXIMETRY AND INTERMITTENT BP.O2 VIA N/C INTACT THROUGHOUT SEDATION/PROCEDURE.
--- NOTE | 2019-02-22 12:37 | NUR ---
Patient up to Ambulate independently. Gait steady. Discharge instructions reviewed with patient. Patient verbalizes understanding. Copy given to patient to take home. Patient States Post-Procedure ride home has been arranged. Discharged via wheelchair to private car for ride home.
== END 2019-02-22 12:33 | disposition home or self-care (01) ==
LOC: ORSCMMR 09:36 → ORD 12:00 → ORSCMMR 12:00
PROVIDERS: Surgery
PROC: 0DBL8ZX Excision of Transverse Colon, Via Natural or Artificial Opening Endoscopic, Diagnostic (ICD-10-PCS; principal; 2019-02-22 12:00)
DX: Z12.11 Encounter for screening for malignant neoplasm of colon (principal); D12.3 Benign neoplasm of transverse colon; K57.30 Diverticulosis of large intestine without perforation or abscess without bleeding; Z93.3 Colostomy status; Z87.19 Personal history of other diseases of the digestive system; F41.9 Anxiety disorder, unspecified; Z87.891 Personal history of nicotine dependence; Z79.899 Other long term (current) drug therapy
CPT/HCPCS: 88305; J2704; J7120

== ENCOUNTER 2019-02-22 17:04 | Inpatient (IN) | payer OTHER ==
[~2019-02-22] VITALS: Ht 160 cm; Wt 97.6 kg
--- NOTE | 2019-02-23 06:26 | NUR ---
Ambulatory in Day Surgery History, Chart, Medications and Allergies reviewed before start of procedure.Patient confirms NPO status and agrees with scheduled surgery. Patient States Post-Procedure ride home has been arranged.
--- NOTE | 2019-02-23 07:32 | NUR ---
ABX PRIMED AND READIED AT BEDSIDE FOR SURGERY. DR MAE ORDERED SECOND DOSE OF ABX TO BE GIVEN AT 2 HOUR DESI. ORDERED AND RECIEVED AND PASSED OFF TO OR NURSE. NOTE PATIENT VERY NERVOUS AND CRYING WITH FAMILY AT BEDSIDE. REASSURANCE GIVEN BY FAMILY AND RN.
--- NOTE | 2019-02-23 08:21 | NUR ---
02/23/[address] REMOVED OSTOMY BAG AND CLOSED OSTOMY PRIOR TO PROCEDURE. JEROD CAVAZOS, COMPLETED GLENDY/GROIN PREP AND PLACED LOBO CATH.
--- NOTE | 2019-02-23 13:30 | NUR ---
took over care of patient after recieving report. vss grimacing with pain but sleeping also.
--- NOTE | 2019-02-23 13:48 | NUR ---
REPORT GIVEN TO JACEK KEITHCUSTOM HARVESTER FLOOR VSS TO SURGICAL FLOOR WITH RN
--- NOTE | 2019-02-23 16:21 | NUR ---
PT ARRIVED TO UNIT FROM PACU THIS AFTERNOON. DROWSY UPON ARRIVAL BUT WHEN AWAKE, RATED PAIN 10/10. MEDICATED PER ORDERS W/TORADOL AND ZOFRAN FOR NAUSEA. STARTED FENTANYL DIRECTOR CALL CENTER SALES THIS AFTERNOON; PT DEMONSTRATED USE OF DIRECTOR CALL CENTER SALES BUTTON. LANNY WOUND VACS X2 TO ABDOMEN CDI. ABOMINAL BINDER IN PLACE. CALL LIGHT IN REACH. IV FLUIDS INFUSING.
--- NOTE | 2019-02-23 16:38 | NUR ---
CARE ASSUMED OF PT AT THIS TIME, WILL CONTINUE TO MONITOR.
--- NOTE | 2019-02-23 18:06 | NUR ---
SHIFT SUMMARY NO CHANGES TO REPORT SINCE CARE ASSUMED OF PT. WILL MONITOR UNTIL REPORT TO ONCOMING RN.
--- NOTE | 2019-02-24 04:08 | NUR ---
SHIFT SUMMARY PT A&OX4 WITH VSS T/O SHIFT. REPORTS PAIN AT TOLERABLE LEVEL WITH KILN FIREMAN AND TORADOL. ABD DRESSINGS 2X C/D/I WITH NO DRAINAGE NOTED. BOTH PICCO PUMPS IN PLACE AND WORKING. LOBO CATH PATENT AND IN PLACE DRAINING YELLOW URINE. TOLERATING CL DIET.
[2019-02-24 05:36] LABS: BASOPHILS ABSOLUTE AUTO 0.04 K/mm3 (0.00-0.23); BASOPHILS PERCENT AUTO 0 % (0-2); EOSINOPHILS ABSOLUTE AUTO 0.34 K/mm3 (0.00-0.68); EOSINOPHILS PERCENT AUTO 2 % (0-6); Hematocrit 34.5 % (33.0-51.0); Hemoglobin 11.3 g/dL (11.5-16.0); IMMATURE GRAN ABSOLUTE AUTO 0.05 K/mm3 (0.00-0.10); IMMATURE GRAN PERCENT AUTO 0 % (0-1); LYMPHOCYTES ABSOLUTE AUTO 1.24 K/mm3 (0.84-5.20); LYMPHOCYTES PERCENT AUTO 9 % (21-46); MONOCYTES ABSOLUTE AUTO 1.33 K/mm3 (0.16-1.47); MONOCYTES PERCENT AUTO 9 % (4-13); Mean Corpuscular HGB 30.1 pg (26.0-34.0); Mean Corpuscular HGB Conc 32.8 g/dL (31.5-36.5); Mean Corpuscular Volume 92 fL (80-100); Mean Platelet Volume 9.8 fL (9.1-12.4); NEUTROPHILS ABSOLUTE AUTO 11.31 K/mm3 (1.96-9.15); NEUTROPHILS PERCENT AUTO 79 % (41-73); Platelet Count 282 K/mm3 (150-400); RDW Coefficient Variation 14.3 % (11.7-14.2); RDW Standard Deviation 48.3 fL (35.1-46.3); Red Blood Cell Count 3.75 M/mm3 (3.80-5.20); White Blood Cell Count 14.31 K/mm3 (4.00-11.30)
[2019-02-24 05:56] LABS: Anion Gap 6 mmol/L (6-16); Blood Urea Nitrogen 12 mg/dL (8-24); Bun/Creatinine Ratio 13.2 (12.0-20.0); CO2, Blood 27 mmol/L (21-32); Calcium, Blood 8.1 mg/dL (8.5-10.1); Chloride, Blood 103 mmol/L (98-108); Creatinine, Blood 0.91 mg/dL (0.40-1.00); Glomerular Filtration Rate >60 (60-); Glucose, Blood 109 mg/dL (70-99); Potassium, Blood 3.5 mmol/L (3.5-5.5); Sodium, Blood 136 mmol/L (136-145)
--- NOTE | 2019-02-24 17:30 | NUR ---
SUMMARY PT SAT UP IN CHAIR THIS SHIFT. DC'D LOBO CATH THIS AFTERNOON. PT AMBULATED TO RESTROOM AND HAD TWO SMALL BMS. ADVANCED TO FULL LIQUIDS AT LUNCH. MEDICATED PER ORDERS FOR PAIN AND NAUSEA. COMMERCIAL FIELD INSPECTOR INFUSING. ENCOURAGED COMMERCIAL FIELD INSPECTOR USE. PT PLEASANT AND COOPERATIVE. CALL LIGHT IN REACH.
--- NOTE | 2019-02-25 04:12 | NUR ---
SHIFT SUMMARY: PT POD #2 FOR COLOSTOMY TAKEDOWN. 2 LANNY WOUND VACS TO ABD CDI WITH FOAM COMPRESSED. SMALL SHADOWING TO MIDLINE DRESSING. PAIN BEING MANAGED WITH FENTANYL FREIGHT ELEVATOR ERECTOR AND TORADOL PER EMAR. PT MEDICATED WITH ZOFRAN PRN FOR NAUSEA. NO EMESIS. PT REPORTS PASSING FLATUS AND HAVING BM'S. VOIDING WELL. IND IN ROOM. NEW ORDER FOR XANAX TID PRN PER PT BASELINE.
--- NOTE | 2019-02-25 18:02 | NUR ---
SHIFT SUMMARY PT EATING AND DRINKING. PT REPORTS NAUSEA BETTER AFTER HAVING REG FOOD. PT BEEN UP AMBULATING WITH STEADY GAIT IND. PT VOIDING, PASSING GAS AND HAVING BM'S. PT ALSO HAD SHOWER TODAY. IV OUT THIS EVENING WAS TENDER WNL. MULT FAMILY IN/OUT OF ROOM.
--- NOTE | 2019-02-26 04:24 | NUR ---
PATIENT HAD HAD PAIN CONTROLED WITH PO MEDICATIONS AND TORODOL. SHE IS INDEPENDENT IN THE ROOM. LANNY DRESSINGS ARE COMPRESSED WITH NO CHANGE IN THE AMOUNT OF OLD DRAINAGE. NO ACUTE CHANGES.
--- NOTE | 2019-02-26 15:50 | NUR ---
SHIFT SUMMARY PT EATING AND DRINKING, VOIDING, PASSING GAS. PT BEEN ASSISTED WITH ADL'S PRN. PT BEEN MED FOR PAIN. PT UP IND WITH STEADY GAIT. PT USING [employer] LIGHT APPR.
--- NOTE | 2019-02-27 04:35 | NUR ---
SHIFT SUMMARY PT IND IN RM, WALKS FREQUENTLY. HAS BEEN ASSISTED WITH ADL'S PRN. PAIN MANAGED WTIH MED PRN. PT FELT SOME NAUSEA ONCE, MEDICATED PER ORDER. PT DID GET SOME SLEEP DURING THE NIGHT. LANNY X2 IN PLACE AND COMPRESSED. PT SHOWERED, LINENS CHANGED, RM CLEANED. PLAN FOR DC HOME TODAY.
[2019-02-27] MEDS ORDERED: Percocet 5-3251 EACH PO (14:59)
--- NOTE | 2019-02-27 15:20 | NUR ---
DISCHARGE PT HAS DONE WELL TODAY. CLEARED BY SURGEON TO GO HOME. UNDERSTANDS DISCHARGE INSTRUCTIONS.
== END 2019-02-27 15:20 | disposition home or self-care (01) | DRG 331 ==
LOC: SURS 02-23 06:01 → PRE IP 02-23 07:30 → SURS 02-23 14:01
PROVIDERS: ADMIT Surgery
PROC: 0DQM0ZZ Repair Descending Colon, Open Approach (ICD-10-PCS; principal; 2019-02-23 07:30)
DX: Z43.3 Encounter for attention to colostomy (principal); K21.9 Gastro-esophageal reflux disease without esophagitis; F41.9 Anxiety disorder, unspecified
CPT/HCPCS: 36415; 80048; 85025; 93005; 93010; J1100; J1650; J1885; J2250; J2270; J2405; J2543; J2704; J2710; J2765; J3010; J3490; J7050; J7120; V2790